=== PATIENT | male | born 1985 | race Asian ===

== ENCOUNTER 2020-11-19 15:53 | Outpatient (REF) | payer OTHER, SELFPAY | END 2020-11-19 15:54 | disposition home or self-care (01) | LOC: HO.LAB 15:53 | PROVIDERS: Visit Provider Internal Medicine | DX: Z20.822 Contact with and (suspected) exposure to COVID-19 (principal) | CPT/HCPCS: C9803; U0003; U0005 ==

== ENCOUNTER 2022-11-11 12:10 | Outpatient (REF) | payer OTHER, SELFPAY ==
[2022-11-11 13:58] LABS: MANUAL DIFF FLAG NO
[2022-11-11 14:02] LABS: Appearance Urine Clear; Color Urine Yellow; Glucose Urine UA Negative (Negative); Leukocyte Esterase Urine Negative (Negative); Nitrite Urine Negative (Negative); PH 8.5 (5.0-9.0); Specific Gravity - Urine <= 1.005 (1.005-1.025); Urine Blood Negative (Negative); Urine Ketones Negative (Negative); Urine Protein Negative (Neg-Trace)
[2022-11-11 14:15] LABS: Basophils Absolute Auto 0.1 X10*3/uL (0.0-0.2); Basophils Percent Auto 1.5 % (0-2); Eosinophils Absolute Auto 0.4 X10*3/uL (0.0-0.4); Eosinophils Percent Auto 7.4 % (0-4); Hematocrit 41.5 % (42.0-52.0); Hemoglobin 13.2 g/dl (14.0-18.0); Imm Gran Abs Auto 0.02 X10*3/uL (0.00-0.03); Imm Gran Pct Auto 0.4 % (0.0-0.4); Immature Retic Fraction 5.9 % (2.3-13.4); Lymphocytes Absolute Auto 2.3 X10*3/uL (1.2-4.9); Lymphocytes Percent Auto 42.5 % (20-40); Mean Corpuscular HGB Conc 31.8 g/dl (31.0-36.0); Mean Corpuscular Volume 78.7 fL (80.0-98.0); Mean Platelet Volume 10.4 fL (9.4-12.4); Monocytes Absolute Auto 0.4 X10*3/uL (0.1-1.2); Monocytes Percent Auto 7.9 % (2-11); Neutrophils Absolute Auto 2.2 x10*3/uL (2.0-8.3); Neutrophils Percent Auto 40.3 % (45-73); Platelet Count 310 X10*3/uL (160-400); Red Blood Count 5.27 X10*6/uL (4.60-5.80); Red Cell Distribution Width 13.6 % (11.0-16.0); Retic HGB Equivalent 30.2 pg (30.0-35.0); Reticulocyte Percent 0.9 % (0.5-1.8); Reticulocytes Absolute 0.045 X10*6/uL (0.026-0.095); White Blood Count 5.4 X10*3/uL (4.8-10.8)
[2022-11-11 14:33] LABS: Alanine Aminotransferase 78 U/L (0-40); Albumin Level 4.5 g/dL (3.5-5.0); Alkaline Phosphatase 74 U/L (39-117); Anion Gap 11 (12-20); Aspartate Amino Transferase 47 U/L (5-37); Bilirubin Total 0.4 mg/dL (0.0-1.0); Blood Urea Nitrogen 9 mg/dL (9-16); Calcium 9.6 mg/dL (8.4-10.2); Carbon Dioxide 28 mmol/L (22-29); Chloride 106 mmol/L (96-108); Cholesterol 232 mg/dL; Estimated Glomerular Filt Rate > 60; Glucose Fasting 96 mg/dL (60-99); HDL Cholesterol 46 mg/dL; Iron 86 mcg/dL (45-160); LDL Cholesterol Calculated 172 mg/dl; Percent Iron Saturation 25 % (15-50); Potassium 4.5 mmol/L (3.3-5.1); Sodium 140 mmol/L (135-145); Total Iron Binding Capacity 345 mcg/dL (228-428); Triglycerides 74 mg/dL; Unsaturated Iron Binding 259 ug/dL
[2022-11-11 15:01] LABS: Ferritin 74 ng/mL (20-250); Folate 13.6 ng/mL (> or = 4.0); TSH reflex Free T4 1.61 uIU/mL (0.32-4.0); Vitamin B12 693 pg/mL (200-900)
[2022-11-14 00:28] LABS: A. Phagocytphilium DNA,RT-PCR NOT DETECTED (NOT DETECTED); Babesia Microti DNA, RT-PCR NOT DETECTED (NOT DETECTED); Borrelia Miyamotoi,DNA RT-PCR NOT DETECTED (NOT DETECTED); E.Chaffeensis DNA RT-PCR NOT DETECTED (NOT DETECTED); Lyme(Borrelia ssp)DNA RT-PCR NOT DETECTED (NOT DETECTED)
== END 2022-11-11 12:11 | disposition home or self-care (01) ==
LOC: HO.HMGCLDS 12:10
PROVIDERS: PCP Nurse Practitioner Family; Visit Provider Nurse Practitioner Family
DX: Z00.00 Encounter for general adult medical examination without abnormal findings (principal); R53.83 Other fatigue
CPT/HCPCS: 36415; 80053; 80061; 81003; 82607; 82728; 82746; 83540; 84443; 85025; 85045; 87798; 87801

== ENCOUNTER 2022-11-14 12:57 | Outpatient (REF) | payer OTHER, SELFPAY ==
[2022-11-17 04:46] LABS: HBc Num1 0.04 S/CO (0.00-0.79); HBsAGNum1 0.28 S/CO (0.00-0.99); Hepatitis A Antibody IgM 0.36 Index (0-0.79); Hepatitis B Core Antibody Nonreactive (Nonreactive); Hepatitis B Surface Antigen Negative (Negative); ~HepC Num1 0.09 S/CO (0.00-0.79); ~Hepatitis A Antibody IgM Nonreactive (Nonreactive); ~Hepatitis B Surface Antibody REACTIVE (Nonreactive); ~Hepatitis C Antibody Nonreactive (Nonreactive)
[2022-11-21 23:53] LABS: Hematocrit 39.7 % (38.5-50.0); Hemoglobin 12.8 g/dL (13.2-17.1); MCH 24.6 pg (27.0-33.0); MCV 76.3 fL (80.0-100.0); RDW 13.2 % (11.0-15.0)
== END 2022-11-14 12:58 | disposition home or self-care (01) ==
LOC: HO.HMGCLDS 12:57
PROVIDERS: PCP Nurse Practitioner Family; Visit Provider Nurse Practitioner Family
DX: R74.8 Abnormal levels of other serum enzymes (principal); D64.9 Anemia, unspecified
CPT/HCPCS: 36415; 83020; 85014; 85018; 85041; 86704; 86706; 86709; 86803; 87340

== ENCOUNTER 2022-11-25 10:31 | Outpatient (REF) | payer OTHER, SELFPAY ==
--- NOTE | ~2022-11-25 | US_ITS ---
EXAMINATION: US ABDOMEN COMPLETE CLINICAL INFORMATION: Elevated liver enzymes. COMPARISON: None available. TECHNIQUE: Real-time imaging of the abdominal viscera. FINDINGS: PANCREAS: Normal. ABDOMINAL AORTA: The proximal, mid, and distal segments are normal in caliber. INFERIOR VENA CAVA: Visualized portions are normal. LIVER: The liver is normal in size. The liver contour is normal. There is diffuse increased liver parenchymal echogenicity, consistent with hepatic steatosis, with focal fatty sparing. No focal hepatic lesion. There is no intrahepatic biliary duct dilatation seen. GALLBLADDER: Normal. The gallbladder is physiologically distended without evidence of stones, sludge, polyps, wall thickening or pericholecystic fluid. COMMON BILE DUCT: Normal in caliber measuring 0.3 cm in diameter. RIGHT KIDNEY: Normal. No hydronephrosis. No renal calculi or focal parenchymal lesions. The kidney measures 11.0 cm in maximum dimension. LEFT KIDNEY: Normal. No hydronephrosis. No renal calculi or focal parenchymal lesions. The kidney measures 10.4 cm in maximum dimension. SPLEEN: Normal. The spleen measures 9.1 cm in maximum dimension. FREE FLUID: None. US/US abdomen complete IMPRESSION: Mild hepatic steatosis.
== END 2022-11-25 10:32 | disposition home or self-care (01) ==
LOC: HO.HMGCX 10:31
PROVIDERS: PCP Nurse Practitioner Family; Visit Provider Nurse Practitioner Family
DX: R74.8 Abnormal levels of other serum enzymes (principal)
CPT/HCPCS: 76700

== ENCOUNTER 2024-03-02 11:23 | Outpatient (AMB) | payer OTHER, SELFPAY ==
[2024-03-02 11:26] VITALS: BP 118/76; PULSE 78; O2SAT 98; BMI 27.1
--- NOTE | 2024-03-02 11:26 | MHC.PC.OV ---
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 Required: No Accompanied by: Self / Same As Patient Allergies No Known Allergies Allergy (Verified 03/02/24 12:34) Medication List - Last Reconciled 03/02/24 by MARY GRACE Cm multivitamin (Daily Multi-Vitamin tablet) 1 tab PO DAILY omega-3 fatty acids 500 mg PO DAILY Tobacco use date assessed: 03/02/24 Dental Screening Dental Screen Date: 03/02/24 Did you have a dental visit in the last 12 months?: Yes Did you have a dental problem in the last 6 months where you did not have access to dental care?: No Was dental information given to patient?: Patient has dentist HPI PE HPI Details Pt is here for a PE. Will order labs. Pt c/o fatigue. He does have a hx of anemia. Will order labs. Pt c/o difficulty passing stool. He reports feeling like his anus is very tight. Pt does have anal stricture and discomfort on exam. Will refer to GI. Reported having difficulty passing stool. [facility] Social History Housing: House Patient Tobacco Use Status: Never used Tobacco e-Cigarette/Vaping Use: Never Used Second Hand Smoke Exposure: No service: No Current occupational status: employed Current occupation: [employer] Current occupational exposures/hazards: No Cognitive needs: No Hearing needs: No Vision needs: No Questionnaire PHQ-9 Over the last 2 weeks, how often have you been bothered by any of the following problems? 1. Little interest or pleasure in doing things: not at all 2. Feeling down, depressed, or hopeless: several days 3. Trouble falling or staying asleep, or sleeping too much: not at all 4. Feeling tired or having little energy: more than half the days 5. Poor appetite or overeating: several days 6. Feeling bad about yourself - or that you are a failure or have let yourself or your family down: not at all 7. Trouble concentrating on things, such as reading the newspaper or watching television: not at all 8. Moving or speaking so slowly that other people could have noticed. Or the opposite - being so fidgety or restless that you have been moving around a lot more than usual: not at all 9. Thoughts that you would be better off or of hurting yourself in some way: not at all Total score: 4 Depression Screening Interpretation: Negative Depression Screening Done: Yes 09881 - PHQ-9 Billing: Yes Source: Developed by Drs. Marcello Mejias, Aileen Viveros, Junito Lindo and colleagues, with an educational espinoza from [employer]. Thrive Questionnaire Date Thrive assessed: 03/02/24 I am a: Patient What is your living situation today?: I have a steady place to live Within the past 12 months, did the food you bought not last and you didn't have the money to get more?: Never true Within the past 12 months, did you worry whether your food would run out before you got money to buy more?: Never true Do you have trouble paying for medicines?: No Do you have trouble getting transportation to medical appointments?: No Do you have trouble paying your heating and electricity bill?: No Do you have trouble taking care of your child, family member or friend?: No Do you have trouble with day-to-day activities such as bathing, preparing meals, shopping, managing finances, etc.?: No Are you currently unemployed and looking for a job?: No Are you interested in more education?: No Please select the resources that you would like help with: None Currently or been in a relationship where the following occur: I choose not to answer THRIVE Score: 0 AUDIT C Alcohol Use Questionnaire (AUDIT-C) 1. How often do you have a drink containing alcohol?: Never 3. How often do you have six or more drinks on one occasion?: Never Total Score: 0 Score Reviewed/Action Taken: Yes JESUS-7 AMB Questionnaire JESUS-7 Date JESUS - 7 assessed: 03/02/24 Feeling nervous, anxious, or on edge: 0 = Not at all Not being able to stop or control worryin = Not at all Worrying too much about different things: 0 = Not at all Trouble relaxin = Not at all Being so restless that it is hard to sit still: 0 = Not at all Becoming easily annoyed or irritable: 0 = Not at all Feeling afraid as if something awful might happen: 0 = Not at all Total JESUS-7 score (0-4 normal; 5-9 mild; 10-14 moderate; 15-21 severe): 0 Source: Developed by Drs. Marcello Mejias, Aileen Viveros, Junito Lindo and colleagues, with an educational espinoza from [employer]. JESUS-7 Assessment Billing JESUS-7 Assessment Tool: JESUS-7 Assessment 40205 Review of Systems Const Denies chills, Reports fatigue and Denies fever(s) Eyes Denies blurry vision ENT Denies vertigo, Denies dizziness and Denies sore throat Card Denies chest pain at rest, Denies chest pain with activity, Denies diaphoresis, Denies dyspnea and Denies dyspnea on exertion Resp Denies cough, Denies dyspnea, Denies dyspnea on exertion and Denies wheezing GI Denies abdominal pain, Denies melena, Denies hematochezia, Denies constipation, Denies diarrhea and Denies loose stools Denies hematuria Musc Denies numbness and Denies tingling Skin/Breast Denies lesions Neuro Denies vertigo, Denies dizziness, Denies numbness and Denies tingling Psych Denies anxiety, Denies depression, Denies homicidal ideation, Denies suicidal ideation and Denies other (substance abuse) Endo Reports fatigue Aller/Immun Denies wheezing Physical exam (Primary Care) Vital Signs: Last Vital Signs Pulse 78 03/02/24 11:26 BP 118/76 03/02/24 11:26 Pulse Ox 98 03/02/24 11:26 BMI result Body Mass Index 27.1 Tobacco/Smoking Status: Tobacco use Status Tobacco use date assessed 03/02/24 03/02/24 11:28 Patient Tobacco Use Status Never used Tobacco 03/02/24 11:28 e-Cigarette/Vaping Use Never Used 03/02/24 11:28 PHQ-9: PHQ-9 Score PHQ-9: Total score 4 03/02/24 11:53 Depression Screening Interpretation: Negative Thrive Assessment: Date of Thrive Assessment Date Thrive assessed 03/02/24 03/02/24 11:28 Currently or been in a relationship where the following occur: I choose not to answer Const General: cooperative Nutritional Appearance: well nourished Orientation/consciousness: patient oriented x3 HENMT Head: Yes normal to inspection, Yes normocephalic and Yes atraumatic Ears: TM's normal bilaterally Eyes General: appearance normal, both eyes and all related structures Alignment and Position: alignment normal and position normal Neck Neck: Yes normal visual inspection and Yes no lymphadenopathy Thyroid: Thyroid normal Resp Effort & Inspection: normal respiratory effort Auscultation: clear to auscultation bilaterally Cardio Rate: regular rate Rhythm: regular rhythm Heart sounds: S1 normal heart sound present, S2 normal heart sound present and no murmurs GI Other: anal stricture noted, discomfort noted during rectal exam Palpation (GI): Soft to palpation and nontender Auscultation: normal bowel sounds Male General Exam: Yes normal external exam Penis: normal penis Scrotum: scrotum normal, testes descended bilaterally and no inguinal hernias Testes: no testicular mass Skin Rashes: no rashes Neuro General: patient oriented x3, moves all extremities, no focal motor deficits and deep tendon reflexes 2+ bilaterally Romberg Test: Negative Psych Appearance: grossly normal Mental Status: mental status grossly normal Speech and movement: Normal speech and movement present Affect: normal affect Attitude: cooperative Thought process: Normal thought process present Thought content: Normal thought content present Insight: Good insight present (Psych) Judgement: Good judgement present (Psych) Assessment and Plan Assessment & Plan (1) Physical exam: Code(s): Z00.00 - Encounter for general adult medical examination without abnormal findings Plan: Labs ordered (2) Anemia: Code(s): D64.9 - Anemia, unspecified Plan: Labs ordered (3) Anal stenosis: Code(s): K62.4 - Stenosis of anus and rectum Plan The patient agreed to the use of a medical radiation therapist for this encounter. Scribed for MARY GRACE Valdez by Karma Miller medical radiation therapist, on 03/02/2024 at 11:50 EST. Orders: Orders Complete Blood Count Auto Diff Today Z00.00 - Encounter for general adult medical examination without abnormal findings Comprehensive [place]. Panel Fast Today Z00.00 - Encounter for general adult medical examination without abnormal findings TSH reflex Free T4 Today Z00.00 - Encounter for general adult medical examination without abnormal findings IRON PROFILE Today D64.9 - Anemia, unspecified Ferritin Today D64.9 - Anemia, unspecified Hemoglobin Electrophoresis Today D64.9 - Anemia, unspecified UA CC w/rflx Micro + Cult Today Z00.00 - Encounter for general adult medical examination without abnormal findings Lipid Panel Today Z00.00 - Encounter for general adult medical examination without abnormal findings Vitamin B12 and Folate Today D64.9 - Anemia, unspecified Referrals Gastroenterology Referral K62.4 - Stenosis of anus and rectum Coding Level of Care Code Est Pt Prev Care 18-39y(26140) Diagnoses Physical exam Z00.00 Anemia D64.9 Anal stenosis K62.4 Additional Codes JESUS-7 Assessment Billing - JESUS-7 Assessment Tool: JESUS-7 Assessment 43239 ([id number])
== END 2024-03-02 12:03 | disposition home or self-care (01) ==
PROVIDERS: PCP Nurse Practitioner Family; Visit Provider Nurse Practitioner Family
DX: Z00.00 Encounter for general adult medical examination without abnormal findings (principal); D64.9 Anemia, unspecified; K62.4 Stenosis of anus and rectum
CPT/HCPCS: 99395

== ENCOUNTER 2024-03-31 11:57 | Outpatient (REF) | payer OTHER, SELFPAY ==
[2024-03-31 13:31] LABS: MANUAL DIFF FLAG NO
[2024-03-31 13:32] LABS: Appearance Urine Clear; Color Urine Dark Yellow; Glucose Urine UA Negative (Negative); Leukocyte Esterase Urine Negative (Negative); Nitrite Urine Negative (Negative); Specific Gravity - Urine 1.015 (1.005-1.025); Urine Blood Negative (Negative); Urine Ketones Negative (Negative); Urine Protein Negative (Neg-Trace)
[2024-03-31 13:46] LABS: Basophils Absolute Auto 0.1 X10*3/uL (0.0-0.2); Basophils Percent Auto 1.3 % (0-2); Eosinophils Absolute Auto 0.5 X10*3/uL (0.0-0.4); Eosinophils Percent Auto 8.3 % (0-4); Hematocrit 38.7 % (42.0-52.0); Hemoglobin 12.3 g/dl (14.0-18.0); Imm Gran Abs Auto 0.01 X10*3/uL (0.00-0.03); Imm Gran Pct Auto 0.2 % (0.0-0.4); Lymphocytes Absolute Auto 2.5 X10*3/uL (1.2-4.9); Mean Corpuscular HGB Conc 31.8 g/dl (31.0-36.0); Mean Corpuscular Hemoglobin 24.7 pg (27.0-33.0); Mean Corpuscular Volume 77.9 fL (80.0-98.0); Mean Platelet Volume 10.2 fL (9.4-12.4); Monocytes Absolute Auto 0.5 X10*3/uL (0.1-1.2); Monocytes Percent Auto 9.1 % (2-11); Neutrophils Absolute Auto 2.3 x10*3/uL (2.0-8.3); Neutrophils Percent Auto 39.1 % (45-73); Platelet Count 302 X10*3/uL (160-400); Red Blood Count 4.97 X10*6/uL (4.60-5.80); Red Cell Distribution Width 13.6 % (11.0-16.0); White Blood Count 5.9 X10*3/uL (4.8-10.8)
[2024-03-31 14:25] LABS: Alanine Aminotransferase 72 U/L (0-40); Albumin Level 4.4 g/dL (3.5-5.0); Alkaline Phosphatase 76 U/L (39-117); Anion Gap 10 (12-20); Aspartate Amino Transferase 37 U/L (5-37); Bilirubin Total 0.2 mg/dL (0.0-1.0); Blood Urea Nitrogen 12 mg/dL (9-16); Calcium 9.5 mg/dL (8.4-10.2); Carbon Dioxide 27 mmol/L (22-29); Chloride 109 mmol/L (96-108); Cholesterol 229 mg/dL (<200); Estimated Glomerular Filt Rate > 60; Glucose Fasting 96 mg/dL (60-99); HDL Cholesterol 43 mg/dL (>40); Iron 76 mcg/dL (45-160); LDL Cholesterol Calculated 162 mg/dL (<100); Percent Iron Saturation 24 % (15-50); Potassium 4.3 mmol/L (3.3-5.1); Sodium 142 mmol/L (135-145); Total Iron Binding Capacity 317 mcg/dL (228-428); Total Protein 7.3 g/dL (6.5-8.0); Triglycerides 124 mg/dL (<150); Unsaturated Iron Binding 241 ug/dL
[2024-03-31 14:31] LABS: Ferritin 94 ng/mL (20-250); TSH reflex Free T4 2.27 uIU/mL (0.32-4.0)
[2024-03-31 14:47] LABS: Folate 13.3 ng/mL (> or = 4.0); Vitamin B12 579 pg/mL (200-900)
[2024-04-02 11:54] LABS: Hematocrit 39.9 % (38.5-50.0); Hemoglobin 12.4 g/dL (13.2-17.1); MCH 24.8 pg (27.0-33.0); RBC 4.99 Million/uL (4.20-5.80); RDW 13.5 % (11.0-15.0)
== END 2024-03-31 11:58 | disposition home or self-care (01) ==
LOC: HO.HMGCLDS 11:57
PROVIDERS: PCP Nurse Practitioner Family; Visit Provider Nurse Practitioner Family
DX: Z00.00 Encounter for general adult medical examination without abnormal findings (principal); D64.9 Anemia, unspecified
CPT/HCPCS: 36415; 80053; 80061; 81003; 82607; 82728; 82746; 83020; 83540; 84443; 85014; 85018; 85025; 85041

== ENCOUNTER 2024-06-13 12:41 | Outpatient (AMB) | payer OTHER, SELFPAY ==
--- NOTE | 2024-06-13 12:42 | MHC.OFFVIS ---
Vital Signs 06/13/24 13:11 Height 5 ft 8 in Weight 171 lb 15.369 oz BMI 26.1 BP 126/76 Blood Pressure Location Lt brachial Position Sitting Pulse 79 Intake Visit Reasons: K62.4 - Stenosis of anus and rectum Intake Note: Dawna presents in the office as a new patient for stenosis of anus and rectum. CC: HE states that he is dealing with constipation and has been for 4-5 years. He has tried a lot of medications - he states that he feels like his rectum is thin and hard to push. States that he feels like there is something blocking. Sometimes he has a liquid to soft stools but he still needs to push it out. No blood. Denies any stomach pains. Allergies No Known Allergies Allergy (Verified 03/02/24 12:34) HPI HPI K62.4 - Stenosis of anus and rectum: Details: HPI 38 yr old m here for assessment He has constipation for 4-5 yrs he has hard stool feels like a blockage stools are altered more like pencil shaped occ blood in stool he is anemic no abdominal pain appetite is good weight is stable labs with iron def ROS: Constitutional : No Weight loss, No Fever, No Chills ENT/Mouth : No sore throat, No Rhinorrhea Eyes: No Swelling, No Redness Cardiovascular : No Chest Pain, No SOB, No Edema Respiratory : No Cough, No Sputum, No Wheezing Gastrointestinal : see HPI Genitourinary : NO Dysuria, No Urinary Frequency, No Hematuria, No Urgency Musculoskeletal : no joint pain, No Myalgias, No Joint Swelling Skin : No Skin Lesions, No rash Neuro : No Weakness, No Numbness, No Dizziness, No Headache Psych : No Anxiety/Panic, No Depression Heme/Lymph: No Bruising, No Lymphadenopathy Endocrine : No Polyuria, No Polydipsia All other systems reviewed and are negative. 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 VITAL SIGNS:see workflow HEENT: Nonicteric sclerae, PERRLA, EOMI. Oropharynx clear. Moist mucous membranes. Conjunctivae appear well perfused. No thyroid mass. CHEST: Chest wall is nontender. HEART: Regular rate and rhythm without murmurs. LUNGS: Clear to auscultation bilaterally. ABDOMEN: Soft, positive bowel sounds, nontender, no organomegaly.no flank tenderness SKIN: No rash, no excessive bruising, petechiae, or purpura. NEUROLOGIC: Cranial nerves II-XII intact without motor/sensory deficit. Psych: normal affect A/P: 1/ Micorcytic anemia, abn bowel habit PLAN: 1/ Urgent colonoscopy for further assessment 2/ CT A/P urgent [facility] Social History Housing: House Patient Tobacco Use Status: Never used Tobacco e-Cigarette/Vaping Use: Never Used Second Hand Smoke Exposure: No service: No Current occupational status: employed Current occupation: [employer] Current occupational exposures/hazards: No Cognitive needs: No Hearing needs: No Vision needs: No Physical Exam Vital Signs: Last Vital Signs Pulse 79 06/13/24 13:11 BP 126/76 06/13/24 13:11 BMI result Body Mass Index 26.1 Assessment & Plan Assessment & Plan (1) Anemia: Code(s): D64.9 - Anemia, unspecified Category: Medical Plan: see above Orders: Orders CT abdomen pelvis w IV con Today D64.9 - Anemia, unspecified Complete Blood Count Auto Diff Today D64.9 - Anemia, unspecified Carcinoembryonic Antigen Today D64.9 - Anemia, unspecified Comprehensive Met. Panel Today D64.9 - Anemia, unspecified, K75.81 - Nonalcoholic steatohepatitis (JOYCE) Ferritin Today D64.9 - Anemia, unspecified Medications: New sodium,potassium,mag sulfates 17.5-3.13-1.6 gram (Suprep Bowel Prep Kit) DILUTE; drink 1/2 at 6-8 pm and half at 11 PM- 1AM 354 mL 0RF Coding Level of Care Code New Pt Level 4 (31766) Diagnoses Anemia D64.9
[2024-06-13 13:11] VITALS: BP 126/76; PULSE 79; BMI 26.1
== END 2024-06-13 13:40 | disposition home or self-care (01) ==
LOC: HO.HGI 12:41
PROVIDERS: PCP Nurse Practitioner Family; Visit Provider Internal Medicine Gastroenterology
DX: D64.9 Anemia, unspecified (principal)
CPT/HCPCS: 99204

== ENCOUNTER → 2024-06-13 12:41 | Outpatient (BNVA) | payer OTHER, SELFPAY | PROVIDERS: PCP Nurse Practitioner Family; Visit Provider Internal Medicine Gastroenterology | DX: D64.9 Anemia, unspecified (principal) | CPT/HCPCS: 99202 ==

== ENCOUNTER 2024-06-14 15:21 | Outpatient (REF) | payer OTHER, SELFPAY ==
[2024-06-14 15:43] LABS: MANUAL DIFF FLAG NO
[2024-06-14 17:08] LABS: Basophils Absolute Auto 0.1 X10*3/uL (0.0-0.2); Basophils Percent Auto 1.4 % (0-2); Eosinophils Absolute Auto 0.5 X10*3/uL (0.0-0.4); Eosinophils Percent Auto 7.8 % (0-4); Hematocrit 38.2 % (42.0-52.0); Hemoglobin 12.1 g/dl (14.0-18.0); Imm Gran Abs Auto 0.02 X10*3/uL (0.00-0.03); Imm Gran Pct Auto 0.3 % (0.0-0.4); Lymphocytes Absolute Auto 2.3 X10*3/uL (1.2-4.9); Lymphocytes Percent Auto 35.5 % (20-40); Mean Corpuscular HGB Conc 31.7 g/dl (31.0-36.0); Mean Corpuscular Hemoglobin 24.6 pg (27.0-33.0); Mean Corpuscular Volume 77.6 fL (80.0-98.0); Mean Platelet Volume 10.2 fL (9.4-12.4); Monocytes Absolute Auto 0.5 X10*3/uL (0.1-1.2); Monocytes Percent Auto 8.2 % (2-11); Neutrophils Percent Auto 46.8 % (45-73); Platelet Count 325 X10*3/uL (160-400); Red Blood Count 4.92 X10*6/uL (4.60-5.80); Red Cell Distribution Width 13.8 % (11.0-16.0); White Blood Count 6.5 X10*3/uL (4.8-10.8)
[2024-06-14 19:21] LABS: Alanine Aminotransferase 128 U/L (0-40); Albumin Level 4.6 g/dL (3.5-5.0); Alkaline Phosphatase 86 U/L (39-117); Anion Gap 12 (12-20); Aspartate Amino Transferase 68 U/L (5-37); Bilirubin Total 0.2 mg/dL (0.0-1.0); Blood Urea Nitrogen 14 mg/dL (9-16); Calcium 9.4 mg/dL (8.4-10.2); Carbon Dioxide 27 mmol/L (22-29); Chloride 105 mmol/L (96-108); Estimated Glomerular Filt Rate > 60; Glucose Random 87 mg/dL (60-115); Potassium 3.7 mmol/L (3.3-5.1); Sodium 140 mmol/L (135-145); Total Protein 7.5 g/dL (6.5-8.0)
[2024-06-14 19:43] LABS: Ferritin 105 ng/mL (20-250)
[2024-06-16 21:18] LABS: Transglutaminase IgA <1.0 U/mL
[2024-06-18 23:38] LABS: Endomysial IgA Antibody Negative (Negative)
== END 2024-06-14 15:22 | disposition home or self-care (01) ==
LOC: HO.LAB 15:21
PROVIDERS: PCP Nurse Practitioner Family; Visit Provider Internal Medicine Gastroenterology
DX: D64.9 Anemia, unspecified (principal); K75.81 Nonalcoholic steatohepatitis (NASH)
CPT/HCPCS: 36415; 80053; 82378; 82728; 85025; 86231; 86364

== ENCOUNTER 2024-06-16 13:12 | Day surgery (SDC) | payer OTHER, SELFPAY ==
[2024-06-15 06:37] VITALS: BMI 27.1
--- NOTE | 2024-06-15 10:44 | HO.ANESPROP2 ---
Documented by User: Ani Qiu NP 06/15/24 10:44 HPI - Anesthesia Eval Consult details Narrative: 38yo M for Colonoscopy [facility] Active Problems Active Problems: All Active Problems Fatty liver (Acute) Anal stenosis (Acute) Anemia (Acute) Elevated liver enzymes (Acute) Constipation (Acute) Fatigue (Acute) Physical exam (Acute) Surgical History Surgical History (Updated 06/16/24 @ 13:40 by Honey Francisco RN) H/O colonoscopy Social History Social History Housing: House Patient Tobacco Use Status: Never used Tobacco e-Cigarette/Vaping Use: Never Used Second Hand Smoke Exposure: No Have you been hit, kicked, punched, or otherwise hurt by someone within the past year? If so, by whom?: No Are you DNR?: No Advance Directives: No Advance Directives Information Provided: Yes service: No Current occupational status: employed Current occupation: [employer] Current occupational exposures/hazards: No Cognitive needs: No Hearing needs: No Vision needs: No Meds Allergies Allergy/AdvReac Type Severity Reaction Status Date / Time No Known Allergies Allergy Verified 03/02/24 12:34 Home Medications ?Medication ?Instructions ?Recorded ?Confirmed ?Last Taken ?Type multivitamin (Daily Multi-Vitamin 1 tab PO DAILY 11/05/22 06/16/24 06/12/24 History tablet) omega-3 fatty acids 500 mg capsule 500 mg PO DAILY 11/05/22 06/16/24 06/06/24 History Exam Height,Weight and Vital Signs: Height 5 ft 8 in Weight 80.739 kg Assessment and Plan Assessment Anesthesia Assessment: Chart Reviewed Documented by User: Moises Antonio MD 06/16/24 14:08 [facility] Family History Family history of problems with anesthesia: No Surgical History Surgical History (Updated 06/16/24 @ 13:40 by Honey Francisco RN) H/O colonoscopy History of Problems with Anesthesia: No Social History Social History Housing: House Patient Tobacco Use Status: Never used Tobacco e-Cigarette/Vaping Use: Never Used Second Hand Smoke Exposure: No Have you been hit, kicked, punched, or otherwise hurt by someone within the past year? If so, by whom?: No Are you DNR?: No Advance Directives: No Advance Directives Information Provided: Yes service: No Current occupational status: employed Current occupation: [employer] Current occupational exposures/hazards: No Cognitive needs: No Hearing needs: No Vision needs: No Meds Allergies Allergy/AdvReac Type Severity Reaction Status Date / Time No Known Allergies Allergy Verified 03/02/24 12:34 Home Medications ?Medication ?Instructions ?Recorded ?Confirmed ?Last Taken ?Type multivitamin (Daily Multi-Vitamin 1 tab PO DAILY 11/05/22 06/16/24 06/12/24 History tablet) omega-3 fatty acids 500 mg capsule 500 mg PO DAILY 11/05/22 06/16/24 06/06/24 History Exam Airway Mallampati Class: II TM Dist: <=3cm Neck ROM: Full Loose/Missing/Broken Teeth: No Heart: ok Lungs: ok Assessment and Plan Assessment Anesthesia Assessment: Anesthesia Plan Discussed Final Anesthetic Review Family History of Problems with Anesthesia: No History of Problems with Anesthesia: No NPO: Yes ASA Class: II Final Preanesthetic Review: No Changes in Pt Med Stat, Meds/Allgs Chart Reviewed, Consent Obtained/Reviewed and Anes Risks/Benef Reviewed Patient Risk: Low Procedure Risk: Low Anesthetic Plan Anesthetic Plan: MAC: and Agree w/ Assess. and Plan Disposition: Standard PACU
[2024-06-16 13:25] VITALS: BP 145/68; PULSE 92; RESP 20; TEMP 36.9; O2SAT 98; BMI 27.2
[2024-06-16] MEDS: Lactated Ringers 1,000 ML 100 ML IVCONT (13:38)
--- NOTE | 2024-06-16 13:46 | MHC.SHP ---
Pre-Procedural Eval Section A - 24 Hr Update-Section A only Date of Service: 06/16/24 The patient is an INPATIENT: No The patient has been examined within 24 hours of the surgical procedure. The History & Physical has been completed within 30 days and I have reviewed it.: Yes Section B - Complete if H&P > 30 days Chief Complaint: Stenosis of anus and rectum Allergies: Allergies Allergy/AdvReac Type Severity Reaction Status Date / Time No Known Allergies Allergy Verified 03/02/24 12:34 Plan Diagnosis/Plan: Unchanged I have reviewed the history and physical and performed a pertinent physical examination on my patient. No changes have occurred unless specified. Time Spent With Patient Time: Total time managing care of this patient today ____ minutes.
--- NOTE | 2024-06-16 14:16 | P.OPN-COLO_ITS ---
Colonoscopy Operative Note Operative Note Date of Service: 06/16/24 Narrative: Operative Information Procedure Description: Colonoscopy Indication: anemia and abn bowel habit Anesthesia: MAC COLONOSCOPY Instrument: Olympus variable stiffness pediatric scope 190L Colonoscopy Monitoring: Vital signs and clinical assessment, continuous EKG monitoring, Pulse oximetry, Carbon Dioxide monitoring and blood pressure monitoring were done throughout the procedure. Colon withdrawal time was 8 minutes. Procedure: The patient was placed in the left lateral decubitis position and pre-procedure medications were administered. After a digital rectal examination of the ano-rectum, the video colonoscope was inserted into the rectum and advanced through the colon to the cecum/TI. The colonoscope was slowly withdrawn in a retrograde panoramic fashion and the colon mucosa was carefully examined including a retroflexed view of the rectum. Findings and interventions are described below. Procedure Difficulty: easy Findings: Terminal Ileum-normal Cecum:normal Right sided retroflexion- normal Ascending Colon: normal Transverse Colon -normal Descending Colon:normal Sigmoid Colon: normal Rectum: Retroflexion with small to medium internal hemorrhoids seen, grade I Anorectum - normal Intervention: none Colon preparation: [employer] Bowel Preparation Scale Right colon; 3 Transverse colon: 3 Left colon; 3 (0 = Unprepared colon segment with mucosa not seen due to solid stool that cannot be cleared. 1 = Portion of mucosa of the colon segment seen, but other areas of the colon segment not well seen due to staining, residual stool and/or opaque liquid. 2 = Minor amount of residual staining, small fragments of stool and/or opaque liquid, but mucosa of colon segment seen well. 3 = Entire mucosa of colon segment seen well with no residual staining, small fragments of stool or opaque liquid) Impression and Post Procedure Diagnosis: internal hemorrhoids Plan: High fiber diet leaflet Avoid straining at stool, epsom salts and sitz bath, anusol supps or cream Repeat Colonoscopy in 9-10 years or earlier if clinically indicated Above findings were reviewed with the patient and relevant handouts were provided if indicated.
[2024-06-16 14:23] VITALS: BP 92/50; PULSE 91; RESP 18; TEMP 36.9; O2SAT 98
[2024-06-16 14:38] VITALS: BP 106/67; PULSE 84; RESP 20; TEMP 36.6; O2SAT 100
== END 2024-06-16 15:15 | disposition home or self-care (01) ==
PROVIDERS: PCP Nurse Practitioner Family; Visit Provider Internal Medicine Gastroenterology
PROC: 0DJD8ZZ Inspection of Lower Intestinal Tract, Via Natural or Artificial Opening Endoscopic (ICD-10-PCS; CPT 45378; principal; 2024-06-16 14:30)
DX: K64.0 First degree hemorrhoids (principal); K62.4 Stenosis of anus and rectum; D64.9 Anemia, unspecified; K76.0 Fatty (change of) liver, not elsewhere classified; K59.00 Constipation, unspecified
CPT/HCPCS: 45378; J2003; J2704

== ENCOUNTER → 2024-06-16 13:12 | Outpatient (BNV) | payer OTHER, SELFPAY | PROVIDERS: PCP Nurse Practitioner Family; Visit Provider Internal Medicine Gastroenterology | DX: D64.9 Anemia, unspecified (principal); R19.4 Change in bowel habit; K64.0 First degree hemorrhoids | CPT/HCPCS: 45378 ==

== ENCOUNTER 2024-08-04 07:09 | Outpatient (REF) | payer OTHER, SELFPAY ==
--- NOTE | ~2024-08-04 | CT_ITS ---
EXAMINATION: CT ABDOMEN PELVIS WITH IV CONTRAST HISTORY: D64.9 - Anemia, unspecified COMPARISON: Correlation is made with an abdominal ultrasound dated 11/25/2022. TECHNIQUE: CT scan of the abdomen and pelvis was performed following administration of 85 mL Omnipaque 350 using standard departmental protocol. Coronal and sagittal reformatted images were generated and reviewed. Oral contrast material was not administered at the request of the referring physician. This CT exam was performed with one or more of the following dose reduction techniques: automated exposure control, adjustment of the mA and/or kV according to patient size, use of iterative reconstruction technique. DLP: 416 mGy-cm FINDINGS: LOWER CHEST: The visualized lung bases are clear. There is no pleural effusion. CARDIOVASCULATURE: The heart is normal in size. There is no pericardial effusion. LIVER: The liver is normal in size and contour. No liver mass is identified. The hepatic and portal veins are patent. GALLBLADDER / BILE DUCTS: The gallbladder is unremarkable. There is no intra or extrahepatic biliary ductal dilatation. SPLEEN: The spleen is normal in size. No focal splenic lesion is identified. PANCREAS: The pancreas is unremarkable in appearance. ADRENAL GLANDS: Within normal limits. KIDNEYS/RETROPERITONEUM: No renal calculi are identified. There is no hydronephrosis. No renal masses are identified. LYMPH NODES: No abdominal or pelvic lymphadenopathy. VASCULATURE: The abdominal aorta is normal in caliber. MESENTERY/PERITONEUM: No free fluid. No masses. There is no free intraperitoneal gas. STOMACH: The stomach is collapsed, limiting evaluation. SMALL BOWEL: The small bowel is normal in caliber. COLON: The colon is unremarkable. APPENDIX: Normal. URINARY BLADDER/PELVIC ORGANS: The urinary bladder is collapsed, limiting evaluation. The prostate is normal in size. BONES / SOFT TISSUES: No suspicious bony or soft tissue abnormalities. CT/CT abdomen pelvis w IV con IMPRESSION: Unremarkable contrast-enhanced CT of the abdomen and pelvis. Electronically signed by: Marcello Aragon MD 08/04/2024 08:[address] [facility]
[2024-08-04 08:20] LABS: MANUAL DIFF FLAG NO
[2024-08-04] MEDS: iohexoL 350 MG/ML 100 ML INFUS..BTL IV (08:23)
[2024-08-04 08:43] LABS: Basophils Absolute Auto 0.1 X10*3/uL (0.0-0.2); Basophils Percent Auto 1.3 % (0-2); Eosinophils Absolute Auto 0.7 X10*3/uL (0.0-0.4); Eosinophils Percent Auto 10.9 % (0-4); Hematocrit 39.8 % (42.0-52.0); Hemoglobin 12.6 g/dl (14.0-18.0); Imm Gran Abs Auto 0.02 X10*3/uL (0.00-0.03); Imm Gran Pct Auto 0.3 % (0.0-0.4); Lymphocytes Percent Auto 33.1 % (20-40); Mean Corpuscular HGB Conc 31.7 g/dl (31.0-36.0); Mean Corpuscular Hemoglobin 24.5 pg (27.0-33.0); Mean Corpuscular Volume 77.4 fL (80.0-98.0); Mean Platelet Volume 9.4 fL (9.4-12.4); Monocytes Absolute Auto 0.6 X10*3/uL (0.1-1.2); Monocytes Percent Auto 10.2 % (2-11); Neutrophils Absolute Auto 2.7 x10*3/uL (2.0-8.3); Neutrophils Percent Auto 44.2 % (45-73); Platelet Count 311 X10*3/uL (160-400); Red Blood Count 5.14 X10*6/uL (4.60-5.80); Red Cell Distribution Width 13.8 % (11.0-16.0); White Blood Count 6.1 X10*3/uL (4.8-10.8)
[2024-08-04 09:11] LABS: Iron 66 mcg/dL (45-160); Percent Iron Saturation 21 % (15-50); Total Iron Binding Capacity 307 mcg/dL (228-428); Unsaturated Iron Binding 241 ug/dL
[2024-08-04 09:23] LABS: Ferritin 126 ng/mL (20-250)
== END 2024-08-04 07:10 | disposition home or self-care (01) ==
LOC: HO.CT 07:09
PROVIDERS: PCP Nurse Practitioner Family; Visit Provider Internal Medicine Gastroenterology
DX: D64.9 Anemia, unspecified (principal)
CPT/HCPCS: 36415; 74177; 82728; 83540; 85025; Q9967

== ENCOUNTER → 2024-08-04 07:10 | Outpatient (BNV) | payer OTHER, SELFPAY | PROVIDERS: PCP Nurse Practitioner Family; Visit Provider Radiology Diagnostic Radiology | DX: D64.9 Anemia, unspecified (principal) | CPT/HCPCS: 74177 ==

== ENCOUNTER 2024-09-09 13:51 | Outpatient (REF) | payer OTHER, SELFPAY ==
[2024-09-09 16:15] LABS: MANUAL DIFF FLAG NO
[2024-09-09 16:21] LABS: Basophils Absolute Auto 0.1 X10*3/uL (0.0-0.2); Basophils Percent Auto 1.9 % (0-2); Eosinophils Absolute Auto 0.6 X10*3/uL (0.0-0.4); Hematocrit 38.4 % (42.0-52.0); Hemoglobin 12.2 g/dl (14.0-18.0); Imm Gran Abs Auto 0.01 X10*3/uL (0.00-0.03); Imm Gran Pct Auto 0.2 % (0.0-0.4); Lymphocytes Absolute Auto 2.4 X10*3/uL (1.2-4.9); Lymphocytes Percent Auto 38.8 % (20-40); Mean Corpuscular HGB Conc 31.8 g/dl (31.0-36.0); Mean Corpuscular Hemoglobin 24.5 pg (27.0-33.0); Mean Corpuscular Volume 77.3 fL (80.0-98.0); Mean Platelet Volume 9.9 fL (9.4-12.4); Monocytes Absolute Auto 0.5 X10*3/uL (0.1-1.2); Monocytes Percent Auto 8.1 % (2-11); Neutrophils Absolute Auto 2.6 x10*3/uL (2.0-8.3); Platelet Count 353 X10*3/uL (160-400); Red Blood Count 4.97 X10*6/uL (4.60-5.80); Red Cell Distribution Width 13.9 % (11.0-16.0); Retic HGB Equivalent 28.6 pg (30.0-35.0); Reticulocyte Percent 1.1 % (0.5-1.8); Reticulocytes Absolute 0.055 X10*6/uL (0.026-0.095); White Blood Count 6.2 X10*3/uL (4.8-10.8)
[2024-09-09 16:47] LABS: Alanine Aminotransferase 100 U/L (0-40); Albumin Level 4.4 g/dL (3.5-5.0); Anion Gap 10 (12-20); Aspartate Amino Transferase 45 U/L (5-37); Bilirubin Total 0.2 mg/dL (0.0-1.0); Blood Urea Nitrogen 11 mg/dL (9-16); Calcium 9.6 mg/dL (8.4-10.2); Carbon Dioxide 27 mmol/L (22-29); Chloride 107 mmol/L (96-108); Estimated Glomerular Filt Rate > 60; Glucose Random 93 mg/dL (60-115); Lactate Dehydrogenase 192 U/L (118-273); Potassium 4.3 mmol/L (3.3-5.1); Sodium 140 mmol/L (135-145); Total Protein 7.8 g/dL (6.5-8.0)
[2024-09-09 16:55] LABS: TSH reflex Free T4 1.18 uIU/mL (0.32-4.0)
[2024-09-09 17:06] LABS: Folate 16.3 ng/mL (> or = 4.0); Vitamin B12 662 pg/mL (200-900)
[2024-09-09 17:54] LABS: Alkaline Phosphatase 83 U/L (39-117)
== END 2024-09-09 13:52 | disposition home or self-care (01) ==
LOC: HO.HMGCLDS 13:51
PROVIDERS: PCP Nurse Practitioner Family; Visit Provider Nurse Practitioner Family
DX: D64.9 Anemia, unspecified (principal)
CPT/HCPCS: 36415; 80053; 82607; 82746; 83615; 84443; 85025; 85045

== ENCOUNTER → 2024-10-05 14:55 | Outpatient (BNV) | payer OTHER, SELFPAY | PROVIDERS: PCP Nurse Practitioner Family; Referring Provider Nurse Practitioner Family; Visit Provider Internal Medicine | DX: D50.9 Iron deficiency anemia, unspecified (principal) | CPT/HCPCS: 99204; G2211 ==

== ENCOUNTER 2025-06-12 15:02 | Outpatient (REF) | payer OTHER, SELFPAY ==
[2025-06-12 16:10] LABS: MANUAL DIFF FLAG NO
[2025-06-12 16:26] LABS: Appearance Urine Clear; Glucose Urine UA Negative (Negative); PH 6.5 (5.0-9.0); Specific Gravity - Urine 1.010 (1.005-1.025)
[2025-06-12 16:27] LABS: Hematocrit 38.9 % (42.0-52.0); Hemoglobin 12.4 g/dl (14.0-18.0); Imm Gran Abs Auto 0.02 X10*3/uL (0.00-0.03); Imm Gran Pct Auto 0.3 % (0.0-0.4); Lymphocytes Absolute Auto 2.3 X10*3/uL (1.2-4.9); Mean Corpuscular HGB Conc 31.9 g/dl (31.0-36.0); Mean Corpuscular Hemoglobin 24.2 pg (27.0-33.0); Mean Corpuscular Volume 76.0 fL (80.0-98.0); NRBC Abs Auto 0.000 X10*3/uL (0.0-0.012); NRBC Pct Auto 0.0 /100WBC (0.0-0.2); Platelet Count 350 X10*3/uL (160-400); Red Blood Count 5.12 X10*6/uL (4.60-5.80); White Blood Count 7.8 X10*3/uL (4.8-10.8)
[2025-06-12 17:31] LABS: Alanine Aminotransferase 93 U/L (0-40); Albumin Level 5.0 g/dL (3.5-5.0); Alkaline Phosphatase 82 U/L (39-117); Anion Gap 12 (12-20); Aspartate Amino Transferase 47 U/L (5-37); Blood Urea Nitrogen 13 mg/dL (9-16); Calcium 9.6 mg/dL (8.4-10.2); Carbon Dioxide 27 mmol/L (22-29); Chloride 106 mmol/L (96-108); Cholesterol 223 mg/dL (<200); Estimated Glomerular Filt Rate > 60; HDL Cholesterol 44 mg/dL (>40); Potassium 4.2 mmol/L (3.3-5.1); Sodium 141 mmol/L (135-145); Total Protein 8.0 g/dL (6.5-8.0); Triglycerides 108 mg/dL (<150)
== END 2025-06-12 15:03 | disposition home or self-care (01) ==
LOC: HO.HMGCLDS 15:02
PROVIDERS: PCP Nurse Practitioner Family; Visit Provider Nurse Practitioner Family
DX: Z00.00 Encounter for general adult medical examination without abnormal findings (principal)
CPT/HCPCS: 36415; 80053; 80061; 81003; 84443; 85025

== ENCOUNTER 2025-06-15 10:12 | Outpatient (AMB) | payer OTHER, SELFPAY ==
[2025-06-15 10:15] VITALS: BP 118/80; PULSE 80; O2SAT 98; BMI 27.4
--- NOTE | 2025-06-15 10:15 | MHC.PC.OV ---
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 History of Present Illness The patient is a 39 year old male presenting for a follow-up on recent lab results. Recent labs revealed a slight anemia, for which he already sees a quarry supervisor [employer] [facility] for suspected thalassemia. He reports new onset of wheezing with exercising, including just walking. He denies any history of childhood asthma. He has a history of hepatic steatosis, and recent labs show elevated liver enzymes. He also has elevated cholesterol. For constipation, he is taking MiraLax, which he reports is helping. Social History - Exercise: The patient reports walking, but experiences wheezing with activity. Health Maintenance - The patient follows with hematology for anemia. Review of Systems - Constitutional: Denies fevers. - Respiratory: Reports wheezing with exercise. - Cardiovascular: Denies chest pain. - Gastrointestinal: Reports constipation. Denies abdominal pain, diarrhea, and hematochezia. - Psychiatric: Denies suicidal ideation and homicidal ideation. Physical Exam General: Cooperative, healthy appearing, comfortable, no acute distress and well developed Orientation: Patient oriented x3 Limitations: No limitations Head: Normal to inspection Ears: Hearing grossly normal bilaterally Nose: Normal external nose present Face and sinus: Normal facial exam Eyes: Appearance normal, both eyes and all related structures Neck: Normal visual inspection and Yes full ROM Respiratory: Normal respiratory effort and able to speak in complete sentences. Clear to auscultation bilaterally, no wheezing currently Cardiovascular: Regular rate and rhythm. Normal S1 and S2 GI: Normal to inspection. Soft to palpation and nontender Skin: No rashes or lesions noted Neuro: Patient oriented x3 Extremities: Normal to inspection Results - Labs: Recent labs show a slight anemia, elevated liver enzymes, and elevated cholesterol. Plan 1. Exercise-Induced Wheezing The patient reports wheezing with exercise, raising suspicion for an asthma component, though he denies a history of childhood asthma. To further evaluate this, will order pulmonary function tests (PFTs) with a methacholine challenge and a chest x-ray to be done today. 2. Hepatic Steatosis And Hypercholesterolemia The patient has a known history of fatty liver, with recent labs showing elevated liver enzymes and elevated cholesterol. Will order a new abdominal ultrasound, as the last one was several years ago. He will be started on citrus bergamot for his hypercholesterolemia. Plan to repeat his cholesterol and liver function tests in approximately two months. 3. Constipation The patient reports ongoing constipation, which has been improving with his use of MiraLax. To further aid management, stool softeners will be added twice a day. 4. Anemia Recent labs show a slight anemia. He is already under the care of a quarry supervisor [employer] [facility] for this, with a suspected diagnosis of thalassemia, so no new interventions will be made at this visit. Discussion Notes I discussed the patient's report of wheezing with exertion and the possibility of an underlying asthma component, despite his lack of childhood history. I explained the plan to order a chest x-ray and pulmonary function testing with a methacholine challenge for further evaluation. We reviewed his lab abnormalities, including the elevated liver enzymes and cholesterol, in the context of his known fatty liver disease. I recommended an updated liver ultrasound, initiated citrus bergamot for cholesterol management, and advised for repeat labs in 2 months. For his constipation, which is improving with MiraLax, I recommended adding a stool softener twice daily. I also acknowledged his ongoing care with hematology for his slight anemia. Patient Instructions - Please go for a chest X-ray today to check your lungs. - We will arrange for you to have a breathing test, called a PFT with a methacholine challenge, to see if you have asthma. - We will also schedule an ultrasound of your belly to look at your liver. - Start taking [place] Bergamot supplement as directed to help lower your cholesterol. - For constipation, add a stool softener pill twice a day. You can continue taking MiraLax as you have been. - You will need to have your blood drawn again in about 2 months to re-check your cholesterol and liver numbers. - Make sure to continue following up with your blood specialist (quarry supervisor [facility]) for your anemia. [facility] Medical History (Updated 06/15/25 @ 10:54 by Jake King [facility]) Microcytic anemia Surgical History H/O colonoscopy Social History Household Members: Spouse and Children Housing: House Patient Tobacco Use Status: Never used Tobacco e-Cigarette/Vaping Use: Never Used Second Hand Smoke Exposure: No service: No Current occupational status: employed Current occupation: [employer] Current occupational exposures/hazards: No Cognitive needs: No Hearing needs: No Vision needs: No Questionnaire PHQ-9 Over the last 2 weeks, how often have you been bothered by any of the following problems? 1. Little interest or pleasure in doing things: not at all 2. Feeling down, depressed, or hopeless: not at all 3. Trouble falling or staying asleep, or sleeping too much: not at all 4. Feeling tired or having little energy: several days 5. Poor appetite or overeating: not at all 6. Feeling bad about yourself - or that you are a failure or have let yourself or your family down: not at all 7. Trouble concentrating on things, such as reading the newspaper or watching television: not at all 8. Moving or speaking so slowly that other people could have noticed. Or the opposite - being so fidgety or restless that you have been moving around a lot more than usual: not at all 9. Thoughts that you would be better off or of hurting yourself in some way: not at all Total score: 1 Depression Screening Interpretation: Negative Depression Screening Done: Yes 28800 - PHQ-9 Billing: Yes Source: Developed by Drs. Marcello Mejias, Aileen Viveros, Junito Lindo and colleagues, with an educational espinoza from [employer]. Thrive Questionnaire Date Thrive assessed: 03/02/24 I am a: Patient What is your living situation today?: I have a steady place to live Within the past 12 months, did the food you bought not last and you didn't have the money to get more?: Never true Within the past 12 months, did you worry whether your food would run out before you got money to buy more?: I choose not to answer this question Do you have trouble paying for medicines?: No Do you have trouble getting transportation to medical appointments?: No Do you have trouble paying your heating and electricity bill?: No Do you have trouble taking care of your child, family member or friend?: No Do you have trouble with day-to-day activities such as bathing, preparing meals, shopping, managing finances, etc.?: No Are you currently unemployed and looking for a job?: No Are you interested in more education?: No Please select the resources that you would like help with: None Currently or been in a relationship where the following occur: I choose not to answer THRIVE Score: 0 AUDIT C Alcohol Use Questionnaire (AUDIT-C) 1. How often do you have a drink containing alcohol?: Never Total Score: 0 JESUS-7 AMB Questionnaire JESUS-7 Date JESUS - 7 assessed: 03/02/24 Feeling nervous, anxious, or on edge: 0 = Not at all Not being able to stop or control worryin = Not at all Worrying too much about different things: 0 = Not at all Trouble relaxin = Not at all Being so restless that it is hard to sit still: 0 = Not at all Becoming easily annoyed or irritable: 0 = Not at all Feeling afraid as if something awful might happen: 0 = Not at all Total JESUS-7 score (0-4 normal; 5-9 mild; 10-14 moderate; 15-21 severe): 0 Source: Developed by Drs. Marcello Mejias, Aileen Viveros, Junito Lindo and colleagues, with an educational espinoza from [employer]. Physical exam (Primary Care) Vital Signs: Last Vital Signs Pulse 80 06/15/25 10:15 BP 118/80 06/15/25 10:15 Pulse Ox 98 06/15/25 10:15 BMI result Body Mass Index 27.4 Tobacco/Smoking Status: Tobacco use Status Tobacco use date assessed 06/15/25 06/15/25 10:19 Patient Tobacco Use Status Never used Tobacco 06/15/25 10:19 e-Cigarette/Vaping Use Never Used 06/15/25 10:19 PHQ-9: PHQ-9 Score PHQ-9: Total score 1 06/15/25 10:19 Depression Screening Interpretation: Negative Thrive Assessment: Date of Thrive Assessment Date Thrive assessed 03/02/24 06/15/25 10:19 Currently or been in a relationship where the following occur: I choose not to answer Coding Level of Care Code Est Pt Level 4 (41912) Diagnoses Wheezing R06.2 Elevated liver enzymes R74.8 Fatty liver K76.0 Dyslipidemia E78.5 Additional Codes PHQ-9 - 66286 - PHQ-9 Billing: Yes ([id number]) Assessment & Plan Assessment & Plan (1) Wheezing: Comment: with activity Code(s): R06.2 - Wheezing Category: Medical (2) Elevated liver enzymes: Code(s): R74.8 - Abnormal levels of other serum enzymes Category: Medical (3) Fatty liver: Code(s): K76.0 - Fatty (change of) liver, not elsewhere classified Category: Medical (4) Dyslipidemia: Code(s): E78.5 - Hyperlipidemia, unspecified Category: Medical Plan . Orders: Orders XR chest 2V Today R06.2 - Wheezing Hepatitis A,B,C Profile 2 Months K76.0 - Fatty (change of) liver, not elsewhere classified, R74.8 - Abnormal levels of other serum enzymes Smooth Muscle Antibody 2 Months K76.0 - Fatty (change of) liver, not elsewhere classified, R74.8 - Abnormal levels of other serum enzymes Mitochondrial Antibody 2 Months K76.0 - Fatty (change of) liver, not elsewhere classified, R74.8 - Abnormal levels of other serum enzymes RT pft w methacholine Today R06.2 - Wheezing US abdomen complete Today R74.8 - Abnormal levels of other serum enzymes Comprehensive [place]. Panel Fast 2 Months K76.0 - Fatty (change of) liver, not elsewhere classified, R74.8 - Abnormal levels of other serum enzymes Lipid Panel 2 Months K76.0 - Fatty (change of) liver, not elsewhere classified, R74.8 - Abnormal levels of other serum enzymes Medications: New docusate sodium (Colace) 100 mg PO BID 60 caps 4RF 30 days albuterol sulfate 90 mcg/actuation (Ventolin HFA) 1 inh inhalation QID PRN 8.5 grams 0RF shortness of breath or wheezing
== END 2025-06-15 12:36 | disposition home or self-care (01) ==
LOC: HO.HMCC 10:13
PROVIDERS: PCP Nurse Practitioner Family; Visit Provider Nurse Practitioner Family
DX: R06.2 Wheezing (principal); R74.8 Abnormal levels of other serum enzymes; K76.0 Fatty (change of) liver, not elsewhere classified; E78.5 Hyperlipidemia, unspecified; Z23 Encounter for immunization

== ENCOUNTER → 2025-06-15 10:12 | Outpatient (BNVA) | payer OTHER, SELFPAY | PROVIDERS: PCP Nurse Practitioner Family; Visit Provider Nurse Practitioner Family | DX: R06.2 Wheezing (principal); R74.8 Abnormal levels of other serum enzymes; K76.0 Fatty (change of) liver, not elsewhere classified; E78.5 Hyperlipidemia, unspecified | CPT/HCPCS: 90471; 90656; 96127; 99212 ==

== ENCOUNTER 2025-06-20 12:57 | Outpatient (REF) | payer OTHER, SELFPAY ==
--- NOTE | ~2025-06-20 | XR_ITS ---
EXAMINATION: XR CHEST CLINICAL INFORMATION: R06.2 - Wheezing COMPARISON: None available. TECHNIQUE: 2 views of the chest were obtained. FINDINGS: No significant abnormality is noted involving the heart, lungs, mediastinum, bony thorax or soft tissues. XR/XR chest 2V IMPRESSION: Unremarkable examination. Electronically signed by: Deepthi Arias MD 06/20/2025 01:[address] [facility]
== END 2025-06-20 12:58 | disposition home or self-care (01) ==
LOC: HO.HMGCX 12:57
PROVIDERS: PCP Nurse Practitioner Family; Visit Provider Nurse Practitioner Family
DX: R06.2 Wheezing (principal)
CPT/HCPCS: 71046

== ENCOUNTER → 2025-06-20 13:02 | Outpatient (BNV) | payer OTHER, SELFPAY | PROVIDERS: PCP Nurse Practitioner Family; Visit Provider Radiology Diagnostic Radiology | DX: R06.2 Wheezing (principal) | CPT/HCPCS: 71046 ==